=== PATIENT | female | born 1950 | race Caucasian/White ===

== ENCOUNTER 2017-12-15 07:10 | Day surgery (SDC) | payer OTHER ==
[2017-12-10 12:35] VITALS: BMI 20.3
[2017-12-15] MEDS ORDERED: PROPOFOL 20 ML ONE ×2 (07:15)
[2017-12-15] MEDS ORDERED: LIDOCAINE HCL/PF 2% SDV 5ML VIAL ONE (07:21)
[2017-12-15 09:28] VITALS: TEMP 97.6
[2017-12-15 09:29] VITALS: BP 127/73; PULSE 76
== END 2017-12-15 09:30 | disposition home or self-care (01) ==
LOC: FASU-ENDO 07:10
PROVIDERS: ATTEND Internal Medicine Gastroenterology
PROC: 0D5H8ZZ Destruction of Cecum, Via Natural or Artificial Opening Endoscopic (ICD-10-PCS; principal; 2017-12-15 08:29)
DX: Z86.010 Personal history of colon polyps (principal); Z80.0 Family history of malignant neoplasm of digestive organs; K55.20 Angiodysplasia of colon without hemorrhage

== ENCOUNTER → 2018-08-27 | Day surgery (SDC) | payer OTHER ==
--- NOTE | 2018-08-31 15:03 | PATH ---
Surgical Pathology Report Patient Name: TED ORTEZ [facility]. Rec. #: [id number] /Age/Gender: 1950 (Age: 68) / F Account: [id number] Location: [facility] Taken: 08/27/2018 Received: 08/27/2018 Reported: 08/31/2018 Physicians: Carley Ga M.D. Specimen(s) Received A: LEFT BREAST SPECIMEN WITH CALCIFICATIONS B: LEFT BREAST SPECIMEN WITHOUT CALCIFICATIONS Clinical History Mammographic findings: Microcalcification, suspicious Final Diagnosis A. BREAST, LEFT, WITH CALCIFICATIONS, STEREOTACTIC CORE BIOPSY: BENIGN BREAST PARENCHYMA WITH STROMAL FIBROSIS AND ASSOCIATED MICROCALCIFICATIONS WITHIN STROMA AND BLOOD VESSEL WALL. B. BREAST, LEFT, WITHOUT CALCIFICATIONS, STEREOTACTIC CORE BIOPSY: BENIGN BREAST PARENCHYMA WITH STROMAL FIBROSIS AND ASSOCIATED STROMAL MICROCALCIFICATIONS. . Electronically Signed Diann Worthington M.D. Gross Description A. Received in formalin labeled "left breast with calcifications," are 7 eisenberg-yellow, cylindrical portions of fibroadipose tissue ranging from 0.6-2.0 cm in length and averaging 0.3 cm in diameter. The specimens are submitted in toto in 2 cassettes. B. Received in formalin labeled "left breast without calcifications," is a 4.0 x 4.0 x 0.4 cm aggregate of eisenberg-yellow, irregular to cylindrical portions of fibroadipose tissue. The formalin is filtered and the specimen is entirely submitted in 3 cassettes. Time to formalin fixation: 5 minutes Total formalin fixation time: Approximately 30 hours. 08/28/201808/28/2018
== END | disposition home or self-care (01) ==
LOC: FMAMMOTONE 09:51
PROVIDERS: ATTEND Surgery Surgical Oncology
PROC: 0HBU3ZX Excision of Left Breast, Percutaneous Approach, Diagnostic (ICD-10-PCS; principal; 2018-08-27)
DX: N60.32 Fibrosclerosis of left breast (principal); N64.89 Other specified disorders of breast; R92.1 Mammographic calcification found on diagnostic imaging of breast
CPT/HCPCS: 19081; 87899; 88305-TC; A4648

== ENCOUNTER 2019-04-06 06:00 | Day surgery (SDC) | payer OTHER | END 2019-04-06 09:05 | disposition home or self-care (01) | LOC: FASU 06:00 ==

== ENCOUNTER 2020-10-30 11:30 | Emergency (ER) | payer OTHER ==
[2020-10-30] MEDS ORDERED: IBUPROFEN 600 MG TABLET (FP) PO ONE ×2 (11:39→12:53)
[2020-10-30] MEDS ORDERED: DIPHTH,PERTUSS(ACELL),TET 0.5 ML DISP.SYRIN IM ONE ×2 (11:40→12:53)
[2020-10-30 11:58] VITALS: BP 130/72; PULSE 80; TEMP 98.9; BMI 19.7
== END 2020-10-30 13:26 | disposition home or self-care (01) ==
LOC: FER 11:30
PROC: 3E0234Z Introduction of Serum, Toxoid and Vaccine into Muscle, Percutaneous Approach (ICD-10-PCS; principal; 2020-10-30)
PROC: 2W3CX1Z Immobilization of Right Lower Arm using Splint (ICD-10-PCS; principal; 2020-10-30)
DX: S52.501A Unspecified fracture of the lower end of right radius, initial encounter for closed fracture (principal); W19.XXXA Unspecified fall, initial encounter
CPT/HCPCS: 70450-TC; 73110-TC-RT-FY; 73130-TC-RT-FY; 90715; 99284-25

== ENCOUNTER 2020-11-08 09:59 | Day surgery (SDC) | payer OTHER ==
[2020-11-06 12:36] VITALS: BMI 19.9
[2020-11-08] MEDS ORDERED: ROPIVACAINE HCL 0.5% 30ML VIAL ONE (12:18)
[2020-11-08] MEDS ORDERED: EPINEPHrine/PF 1 MG/1 ML (1:1,000) AMPULE ONE (12:18)
[2020-11-08] MEDS ORDERED: MIDAZOLAM HCL 2 MG/2 ML SINGLE DOSE VIAL ONE (12:18)
[2020-11-08] MEDS ORDERED: CLINDAMYCIN PHOSPHATE 600 MG/4 ML VIAL ONE (13:30)
[2020-11-08] MEDS ORDERED: PROPOFOL 20 ML ONE ×2 (13:31)
[2020-11-08] MEDS ORDERED: METOPROLOL TARTRATE 5 MG/5 ML VIAL ONE (14:21)
[2020-11-08 14:47] VITALS: TEMP 98.1
[2020-11-08 15:20] VITALS: BP 131/58; PULSE 84
== END 2020-11-08 15:35 | disposition home or self-care (01) ==
LOC: FASU 09:59
PROVIDERS: ATTEND Orthopaedic Surgery Hand Surgery
PROC: 0PSH04Z Reposition Right Radius with Internal Fixation Device, Open Approach (ICD-10-PCS; principal; 2020-11-08 13:41)
DX: S52.571A Other intraarticular fracture of lower end of right radius, initial encounter for closed fracture (principal); X58.XXXA Exposure to other specified factors, initial encounter; Y92.9 Unspecified place or not applicable; Y93.9 Activity, unspecified
CPT/HCPCS: 25609; C1713; 73110-TC-RT-FY

== ENCOUNTER 2023-05-16 22:15 | Emergency (ER) | payer OTHER ==
[2023-05-16 22:27] VITALS: RESP 18; BMI 20.5
[2023-05-16] MEDS ORDERED: SODIUM CHLORIDE 1,000 ML IV ONE (22:29)
[2023-05-16] MEDS ORDERED: ONDANSETRON 4 MG/2 ML VIAL IVPUSH ONE (22:29)
[2023-05-16] MEDS ORDERED: KETOROLAC TROMETHAMINE 30 MG/1 ML VIAL IVPUSH ONE (22:29)
[2023-05-16 22:34] VITALS: BP 107/51; PULSE 75; TEMP 98.2
[2023-05-16] MEDS ORDERED: ONDANSETRON 4 MG/2 ML VIAL ONE (22:35)
[2023-05-16] MEDS ORDERED: KETOROLAC TROMETHAMINE 30 MG/1 ML VIAL ONE (22:35)
[2023-05-16 23:03] LABS: HEMATOCRIT 32.3 % (32.4-45.2); HEMOGLOBIN 10.9 G/dL (10.7-15.3); MCH 37.2 pg (25.7-33.7); MCHC 33.7 g/dl (32.0-36.0); MEAN CELL VOLUME 110.2 fl (80-96); MEAN PLT VOLUME 8.4 fl (7.5-11.1); PLATELET COUNT 306.6 10^3/uL (134-434); RBC 2.93 10^6/uL (3.60-5.2); RDW 13.3 % (11.6-15.6); WHITE BLOOD COUNT 8.1 10^3/uL (4.0-10.8)
[2023-05-16 23:25] LABS: PLATELET ESTIMATE ADEQUATE
[2023-05-16 23:58] LABS: POTASSIUM 3.3 mmol/L (3.5-5.1)
[2023-05-17] LABS: CALCIUM 8.5 mg/dL (8.5-10.1)
[2023-05-17 00:01] LABS: ALBUMIN 3.4 g/dl (3.4-5.0); BLOOD UREA NITROGEN 5.7 mg/dL (7-18)
[2023-05-17 00:04] LABS: CREATININE 0.5 mg/dL (0.55-1.3)
[2023-05-17 00:05] LABS: BILIRUBIN,TOTAL 0.5 mg/dL (0.2-1); TOT PROT 7.1 g/dl (6.4-8.2)
[2023-05-17] MEDS ORDERED: ACETAMINOPHEN 1000 MG/100 ML BAG IVPB ONE (00:14)
[2023-05-17] MEDS ORDERED: ACETAMINOPHEN INJECTION 100 ML IVPB ONE (00:18)
[2023-05-17] MEDS ORDERED: POTASSIUM CHLORIDE TABS 20 MEQ TABLET.ER (FP) PO ONE ×2 (00:19→00:23)
[2023-05-17 01:03] LABS: EPI CELLS 12 /uL (0-25.1); HYALINE CASTS 47 /uL (0-3.1); PH,URINE 5.5 (5.0-8.0); URINE APPEARANCE CLOUDY; URINE BACTERIA 101 /uL (0-1359); URINE BILIRUBIN NEGATIVE (NEGATIVE); URINE COLOR DK YELLOW; URINE GLUCOSE (UA) NEGATIVE (NEGATIVE); URINE KETONE TRACE (NEGATIVE); URINE LEUK ESTERASE 2+ (NEGATIVE); URINE NITRITE NEGATIVE (NEGATIVE); URINE PROTEIN 1+ (NEGATIVE); URINE RBC 4 /uL (0-23.9); URINE WBC 419 /uL (0-25.8)
[2023-05-17] MEDS ORDERED: CYCLOBENZAPRINE HCL 5 MG TABLET PO STA (01:30)
[2023-05-17] MEDS ORDERED: CYCLOBENZAPRINE HCL 5 MG TABLET ONE (01:34)
[2023-05-17 09:33] LABS: URINE CRYSTALS CA OXALATES /hpf
== END 2023-05-17 01:40 | disposition home or self-care (01) ==
LOC: FER 22:15
PROC: 3E0333Z Introduction of Anti-inflammatory into Peripheral Vein, Percutaneous Approach (ICD-10-PCS; principal; 2023-05-16)
PROC: 3E033GC Introduction of Other Therapeutic Substance into Peripheral Vein, Percutaneous Approach (ICD-10-PCS; 2023-05-16)
PROC: 3E0337Z Introduction of Electrolytic and Water Balance Substance into Peripheral Vein, Percutaneous Approach (ICD-10-PCS; 2023-05-16)
PROC: 3E033NZ Introduction of Analgesics, Hypnotics, Sedatives into Peripheral Vein, Percutaneous Approach (ICD-10-PCS; 2023-05-17)
DX: R10.9 Unspecified abdominal pain (principal); R11.0 Nausea; R22.41 Localized swelling, mass and lump, right lower limb; M54.6 Pain in thoracic spine
CPT/HCPCS: 36415; 74176-TC; 80053; 81003; 85027; 87086; 93971-TC; 99284-25

== ENCOUNTER 2023-10-27 07:19 | Day surgery (SDC) | payer OTHER ==
[2023-10-16 15:42] VITALS: BMI 19.1
[2023-10-27] MEDS ORDERED: PROPOFOL 160 ML ONE (07:31)
[2023-10-27] MEDS ORDERED: LIDOCAINE HCL/PF 2% SDV 5ML VIAL ONE (07:31)
[2023-10-27 07:46] VITALS: PULSE 95; RESP 18; TEMP 97.5
[2023-10-27 09:19] VITALS: BP 110/64
== END 2023-10-27 09:19 | disposition home or self-care (01) ==
LOC: FASU-ENDO 07:19
PROVIDERS: ATTEND Internal Medicine Gastroenterology
PROC: 0DBK8ZX Excision of Ascending Colon, Via Natural or Artificial Opening Endoscopic, Diagnostic (ICD-10-PCS; 2023-10-27)
PROC: 0D5H8ZZ Destruction of Cecum, Via Natural or Artificial Opening Endoscopic (ICD-10-PCS; 2023-10-27)
PROC: 0DBH8ZX Excision of Cecum, Via Natural or Artificial Opening Endoscopic, Diagnostic (ICD-10-PCS; principal; 2023-10-27 08:19)
DX: Z12.11 Encounter for screening for malignant neoplasm of colon (principal); D12.0 Benign neoplasm of cecum; D12.2 Benign neoplasm of ascending colon; K55.20 Angiodysplasia of colon without hemorrhage; K57.30 Diverticulosis of large intestine without perforation or abscess without bleeding; Z86.010 Personal history of colon polyps; Z80.0 Family history of malignant neoplasm of digestive organs
CPT/HCPCS: 88305-TC